=== PATIENT | male | born 1985 | race Caucasian/White ===

== ENCOUNTER 2020-12-17 20:54 | Inpatient (IN) | payer BC, SELFPAY ==
--- NOTE | ~2020-12-17 | US_ITS ---
US abdomen limited INDICATION: Cirrhosis PROCEDURE: Realtime right upper abdominal ultrasound. COMPARISON: No prior studies for comparison. FINDINGS: The pancreas is normal without focal mass or pancreatic ductal dilation. Echotexture is in creased, consistent with fatty infiltration. There is normal directional flow in the portal vein. The gallbladder is normal without stones, gallbladder wall thickening or pericholecystic fluid. Comm on bile duct measures 5 mm. No sonographic Quijano's sign. IMPRESSION: 1: Hepatic steatosis. Reviewed, dictated and finalized at location A. IMPRESSION: 1: Hepatic steatosis.
--- NOTE | ~2020-12-17 | XR_ITS ---
EXAMINATION: XR chest 1V portable DATE: 12/18/2020 03:00 INDICATION: Cough TECHNIQUE: frontal view of the chest was obtained. COMPARISON: None FINDINGS: Mild opacities in the left midlung zone. No pleural effusion or pneumothorax. The cardiomediastinal s ilhouette is within normal limits for AP technique. IMPRESSION: 1. Mild opacities in the left midlung zone which could represent pneumonia, atelectasis or asymmetric mild pulmonary edema. Reviewed, dictated and finalized at location A. IMPRESSION: 1. Mild opacities in the left midlung zone which could represent pneumonia, ate lectasis or asymmetric mild pulmonary edema.
--- NOTE | ~2020-12-17 | CT_ITS ---
EXAMINATION: CT abdomen pelvis w con INDICATION: Scrotal pain and swelling TECHNIQUE: Computed tomographic images of the abdomen and pelvis were obtained after the administrati on of 100 cc of Omnipaque 350 intravenous contrast. The dose-length product (DLP) was 3018.22 mGy-cm. Automated exposure control and iterative reconstruction technique were employed. COMPARISON: None available FINDINGS: Smooth interlobular septal thickening in groundglass opacities are present in the visualize d lung bases. The heart size is normal. The liver surface is nodular. The spleen, pancreas, gallbladd er, and adrenal glands are normal. The kidneys are unremarkable. There is diffuse anasarca. No pathol ogically enlarged abdominal lymph nodes are identified. There are enlarged bilateral inguinal and pel sandra lymph nodes. There is no free intraperitoneal gas or evidence of bowel obstruction. The appendix is normal. There is severe scrotal soft tissue swelling. There is a small fat-containing umbilical he rnia. Mild lumbar spondylosis is noted. IMPRESSION: 1. Severe scrotal wall thickening, edema versus cellulitis. 2. Inguinal and pelvic lymphadenopathy, likely reactive. 3. Findings in the lung bases consistent with pulmonary edema. 4. Cirrhosis. Reviewed, dictated and finalized at location B.
--- NOTE | ~2020-12-17 | US_ITS ---
EXAMINATION: US scrotum doppler EXAM DATE: 12/17/2020 22:38 INDICATION: Testicular pain. Bilateral swelling for 2 days. TECHNIQUE: Multiple grayscale and Doppler images of the testicles and scrotum were obtained bilateral ly. There is no prior study for comparison. FINDINGS: There is diffuse scrotal swelling, edema of the scrotal skin. Right testicle measures 5.0 x 2.8 x 2.9 cm and is morphologically normal. Low resistance Doppler anahy w confirmed. The epididymis is unremarkable. There is no hydrocele or varicocele. Left testicle measures 5.0 x 3.3 x 2.8 cm and is morphologically normal. Low resistance Doppler flow confirmed. The epididymis is unremarkable. Small hydrocele. IMPRESSION: 1. Severe scrotal wall edema. Cellulitis? 2. Normal testicles. Reviewed, dictated and finalized at location A.
[2020-12-17 20:59] VITALS: BP 209/124; PULSE 112; RESP 18; TEMP 36; O2SAT 100
[2020-12-17 21:20] LABS: Basophils Absolute Auto 0.1 K/mm3 (0.0-0.1); Basophils Percent Auto 0.5 % (0.2-1.2); Eosinophils Absolute Auto 0.3 K/mm3 (0-0.3); Hematocrit 45.4 % (42.0-52.0); Hemoglobin 13.7 g/dL (14.0-18.0); Immature Granulocyte Absolute 0.03 K/mm3 (0.00-0.031); Immature Granulocyte Percent A 0.3 % (0-0.5); Lymphocytes Absolute Auto 2.07 K/mm3 (0.9-3.2); Lymphocytes Percent Auto 18.7 % (18.3-44.2); Mean Corpuscular HGB Conc 30.2 g/dl (32-36); Mean Corpuscular Hemoglobin 28.8 pg (26-34); Mean Corpuscular Volume 95.6 fl (80-100); Mean Platelet Volume 9.3 fl (7.4-10.4); Monocytes Absolute Auto 0.9 K/mm3 (0.1-0.6); Monocytes Percent Auto 8.2 % (2.6-8.5); Neutrophils Absolute Auto 7.7 K/mm3 (1.3-6.7); Neutrophils Percent Auto 69.3 % (45.5-73.1); Platelet Count Result 380 k/mm3 (150-375); Red Blood Count 4.75 M/mm3 (4.6-6.20); Red Cell Distribution Width 14.2 % (11.5-14.5); White Blood Count 11.1 K/mm3 (4.5-10.0)
[2020-12-17 21:24] LABS: Add Urine Microscopic? YES; Appearance Urine Clear (Clear); Bilirubin Urine Negative (Negative); Blood Urine 2+ (Negative); Color Urine Yellow (Yellow); Glucose Urine UA Negative (Negative); Ketones Urine Negative (Negative); Leukocyte Esterase Ur Negative LEU/UL (Negative); Mucus Urine Rare /lpf; Nitrate Urine Negative (Negative); Protein Urine 3+ mg/dL (Negative); RBC Urine 21-50 /hpf (0-2); Specific Grav Ur 1.009 (1.001-1.035); Squamous Epithelial Cell Urine Rare /hpf (Few); Urobilinogen Urine Negative mg/dL (<2.0); WBC Urine 0-3 /hpf
[2020-12-17 21:29] LABS: Anion Gap 9 mmol/L (8-16); Blood Urea Nitrogen 9 mg/dL (9-20); Calcium 8.4 mg/dL (8.4-10.2); Carbon Dioxide 29 mmol/L (22-30); Chloride 95 mmol/L (98-107); Estimated Glomerular Filt Rate > 60; Glucose 112 mg/dL (65-110); Potassium 3.9 mmol/L (3.4-5.0); Sodium 133 mmol/L (137-145)
[2020-12-18] VITALS (19 sets, daily range): BP systolic 152–218; BP diastolic 85–151; PULSE 83–108; RESP 14–28; TEMP 36.1–36.4; O2SAT 94–100; BMI 58.1
--- NOTE | 2020-12-18 00:52 | ED.GENADULT ---
HPI - General Adult General Chief complaint: Urogenital-Male Stated complaint: swollen scrotum Time Seen by Provider: 12/17/20 21:44 Source: RN notes reviewed History of Present Illness HPI narrative: Patient presents to emergency department from home for swollen scrotum. Patient states symptoms began 2 days ago. States the scrotum has become very swollen states that the skin is tender to touch but that is asked testicles do not hurt. He denies any known trauma or injury he denies any fevers or chills abdominal pain dysuria or any other symptoms. Denies having diabetes mellitus patient is on Skyrizi for psoriasis Related Data Home Medications Medication Instructions Recorded Confirmed clozapine mg PO 12/17/20 sertraline [Zoloft] 200 mg PO DAILY 12/17/20 bupropion HCl mg PO 12/18/20 hydrocortisone TOPICAL 12/18/20 risankizumab-rzaa [Skyrizi] mg SUBCUT 12/18/20 triamcinolone acetonide TOPICAL 12/18/20 Allergies Allergy/AdvReac Type Severity Reaction Status Date / Time Sulfa (Sulfonamide Allergy Hives Verified 12/17/20 21:34 Antibiotics) sulfamethoxazole AdvReac Unknown Verified 12/18/20 01:17 [From Bactrim] trimethoprim [From Bactrim] AdvReac Unknown Verified 12/18/20 01:17 Review of Systems Review of Systems: Narrative: Gen.: Denies fevers or chills ENT: Denies congestion Respiratory: Denies shortness of breath or cough CV: Denies chest pain or palpitations GI: Denies abdominal pain nausea, emesis or diarrhea see HPI Musculoskeletal: Denies back pain or muscle pain Neuro: Denies numbness, tingling, weakness or focal weakness Skin: Denies rash Except as documented, all other systems reviewed and negative [facility] Past Medical History Medical History (Updated 12/18/20 @ 06:44 by Brady Restrepo DO) Psoriasis Scrotal edema Social History Social History (Updated 12/18/20 @ 01:51 by Brady Restrepo DO) Smoking status: Never smoker Exam Narrative: Exam Narrative: APPEARANCE: No acute distress, nontoxic, resting in bed EYES: EOMI HEENT: Normocephalic, atraumatic, OMM RESPIRATORY: No respiratory distress Clear to auscultation bilaterally with no rhonchi wheezing or rales. CARDIOVASCULAR: Regular rate and rhythm without murmurs rubs or gallops. ABDOMINAL: Obese with large pannus no erythema noted soft, nontender, nondistended, no rebound or guarding : No skin lesions no phimosis or paraphimosis, diffuse scrotal swelling with mild erythema no crepitance bilateral testicles nontender the right inguinal crease does have erythema no erythema extends into the perineum MUSCULOSKELETAl: Moves all extremities. No clubbing, cyanosis or edema. NEURO: Awake and alert. Following commands, speech normal, no focal deficits SKIN:: Warm, dry. No rashes lesions or abrasions PSYCHIATRIC: Normal affect/mood, Course Course Emergency Course: Called and discussed with Dr. Hodge for urology presentation work-up discussed exam and CT results. At this time meds transfer to tertiary care center as if the patient were to develop Marci's unable to care at [facility]. Recommends patient be started on vancomycin and Zosyn Transfer request [place] at this time D[facility]ed with [facility] and [facility] at [facility] unable to take transfers at this time Called discussed with [facility] Dr. Campbell for urology. At this time feels that this is most likely cellulitis and not a Marci's gangrene as there is no erythema or fluid collections and there is no crepitus on exam. Was the patient may remain our facility and recommends the patient be seen by our urologist prior to any further transfer Called Dr. Naveen yost with urology at [facility]. At this time will come to the ER to evaluate the patient [id number] Dr. Mehta came to the emergency department to evaluate the patient does not believe there is any evidence of Fo
[2020-12-18] MEDS: SODIUM CHLORIDE 0.9% IV 1,000 ML 999 ML IV CONT (01:01)
[2020-12-18 01:55] LABS: Lactic Acid Reflex 1.9 mmol/L (0.7-2.1)
[2020-12-18] MEDS: LORazepam INJ (*CRX) 2 MG/ML VIAL 0.5 MG IV PUSH (02:15)
[2020-12-18 02:42] LABS: NT Pro B Type Natriuretic Pept 3630 pg/mL (5-100)
--- NOTE | 2020-12-18 02:43 | ECG_ITS ---
Measurements Intervals [place] Rate: 106 P: 45 WI: 139 QRS: 40 QRSD: 102 T: 37 QT: 368 QTc: 490 Interpretive Statements SINUS TACHYCARDIA POSSIBLE LEFT ATRIAL ENLARGEMENT INCOMPLETE RIGHT BUNDLE BRANCH BLOCK BORDERLINE ECG Electronically Signed On 12-18-2020 6:26:50 CDT by Jeffrey Orozco D.O.
[2020-12-18] MEDS: hydrALAZINE HCL 20 MG/ML VIAL 10 MG IV PUSH (03:08)
[2020-12-18 03:22] LABS: Troponin I 0.012 ng/mL (0.000-0.034)
--- NOTE | 2020-12-18 06:04 | WPDURCON ---
Assessment and Plan Assessment and plan (1) Scrotal edema: Code(s): N50.89 - Other specified disorders of the male genital organs Status: Acute Assessment and Plan: 35-year-old morbidly obese gentleman with scrotal edema that appears to be secondary to his morbid obesity and possible CHF. - Recommend scrotal elevation - Diuresis per medical team. - there does not appear to be cellulitis or scrotal skin infection.patient was given empiric antibiotics in the emergency department, it does not appear that additional antibiotics necessary Urology Consult Note HPI Date Seen: 12/18/20 Primary Care Provider: PHYSICIAN NOT ON STAFF Consult Narrative Narrative: Allan Ng is a 35 year old male Who presents with scrotal swelling for 2 days. Patient denies fevers or chills nausea vomiting. He states he may have had an ingrown hair on his thigh, and has subsequently noted more scrotal swelling. The patient presents to the emergency department where a CT scan and scrotal ultrasound were performed. Urology was called for evaluation. Review of Systems Review of Systems: All systems reviewed & are unremarkable except as noted in HPI and below PMFSH Past Medical History Medical History (Updated 12/18/20 @ 06:08 by Ge Hodge MD) Psoriasis Scrotal edema Social History Social History (Updated 12/18/20 @ 01:51 by Brady Restrepo DO) Smoking status: Never smoker Meds Home Medications and Allergies Home Medications Medication Instructions Recorded Confirmed Type clozapine mg PO 12/17/20 History sertraline [Zoloft] 200 mg PO DAILY 12/17/20 History bupropion HCl mg PO 12/18/20 History hydrocortisone TOPICAL 12/18/20 History risankizumab-rzaa [Skyrizi] mg SUBCUT 12/18/20 History triamcinolone acetonide TOPICAL 12/18/20 History Allergies Allergy/AdvReac Type Severity Reaction Status Date / Time Sulfa (Sulfonamide Allergy Hives Verified 12/17/20 21:34 Antibiotics) sulfamethoxazole AdvReac Unknown Verified 12/18/20 01:17 [From Bactrim] trimethoprim [From Bactrim] AdvReac Unknown Verified 12/18/20 01:17 Vital Signs Vital Signs - 24 hr 12/17/20 20:59 12/18/20 02:08 12/18/20 03:01 Temperature 36.0 C L Pulse Rate 112 H 108 H 103 H Respiratory Rate 18 20 25 H Blood Pressure 209/124 H 218/127 H 217/140 H Pulse Oximetry 100 100 97 12/18/20 04:20 12/18/20 04:31 12/18/20 05:50 Temperature Pulse Rate 104 H 103 H Respiratory Rate 28 H 14 Blood Pressure 207/151 H 181/118 H 203/127 H Pulse Oximetry 97 97 Exam Narrative: Exam Narrative: The patient is morbidly obese. His breathing is unlabored. And abdomen is soft. the patient with normal phallus. He has bilateral descended testicles are nontender and palpable. there is significant scrotal edema. There is no erythema or crepitus of the scrotum. Results Labs CBC & Chem 7: 12/17/20 21:13 12/17/20 21:13 Labs: Short CBC 12/17/20 Range/Units 21:13 WBC 11.1 H (4.5-10.0) K/mm3 Hgb 13.7 L (14.0-18.0) g/dL Hct 45.4 (42.0-52.0) % Plt Count 380 H (150-375) k/mm3 BMP 12/17/20 21:13 Sodium 133 L Potassium 3.9 Chloride 95 L Carbon Dioxide 29 BUN 9 Creatinine 1.00 Glucose 112 H Calcium 8.4 Cardiac Enzymes 12/18/20 Range/Units 02:13 Troponin I 0.012 (0.000-0.034) ng/mL Urine 12/17/20 Range/Units 21:13 Urine Color Yellow (Yellow) Urine Appearance Clear (Clear) Urine pH 7.0 (5.0-9.0) Ur Specific [place] 1.009 (1.001-1.035) Urine Protein 3+ H (Negative) mg/dL Urine Glucose (UA) Negative (Negative) mg/dL Scrotum Ultrasound 12/17/20 22:48 IMPRESSION: 1. Severe scrotal wall edema. Cellulitis? 2. Normal testicles. CT abdomen pelvis with contrast. Moderate edema seen within the soft tissues anterior lower abdominal wall which is nonspecific. Correlate clinically to excl
[2020-12-18] MEDS: FUROSEMIDE INJ 40 MG/4 ML VIAL IV PUSH ×3 (06:16→16:42)
[2020-12-18] MEDS: LABETALOL HCL INJ 100 MG/20 ML VIAL 20 MG IV PUSH (06:47)
--- NOTE | 2020-12-18 08:50 | PC.NURSE ---
This patient, Allan Ng, was admitted to IMU Room 212-01. Patient/family oriented to hospital policies and general routines including ID bracelet, bed and alarms, visiting hours, pain management, procedures, bathroom and other care routines, personal items, smoking policy, room service/diet, and visiting hours. Information on how to activate the Rapid Response Team has been discussed. Patient/Family are encouraged to report perceived risks to care and to ask questions if they do not understand what they are told or what they should do.
--- NOTE | 2020-12-18 09:12 | PM.IMHP ---
H&P: HPI History of Present Illness Date/Time: 12/18/20 09:12 Chief Complaint: scrotal edema Narrative: This is a 35-year-old male with past medical history significant for morbid obesity, tobacco dependence, alcohol abuse. Patient states that he does not see a doctor on a regular basis it has been and was since he last saw a doctor. he presented to the emergency room due to a scrotal edema and problems with voiding urine. Patient has had PND and orthopnea as well have notice decreased stamina worsening shortness of breath leg swelling increased abdominal girth dry cough he also notices increased weight, no chest pain no syncope or near syncope no fevers no rigors no chills. upon presentation to the emergency room his systolic blood pressure was in the 200's with a diastolic in the 100's. Preliminary workup was significant for a scrotal ultrasound with significant wall edema, chest x-ray with infiltrates present in the left lower base, CT of abdomen and pelvis with lung bases significant for pulmonary edema, hepatic cirrhosis, and severe scrotal wall thickening,brain natriuretic peptide was above 3 thousand. Review of Systems Review of Systems: Narrative: Increased abdominal girth bilateral lower extremity edema and scrotal edema PND orthopnea worsening shortness of breath with activities Constitutional: Constitutional: Denies chills, Denies fever(s) and Reports weight gain Eyes: Eyes: Denies change in vision ENT: Denies dysphagia, Denies vertigo, Denies dizziness and Denies odynophagia Cardiovascular: Cardiovascular: Denies chest pain with activity, Denies irregular heart rhythm, Reports leg edema, Denies radiating jaw, neck or arm pain, Denies palpitations, Reports dyspnea, Reports dyspnea on exertion, Reports orthopnea and Reports paroxysmal nocturnal dyspnea Respiratory: Respiratory: Denies wheezing Gastrointestinal: Gastrointestinal: Denies abdominal pain, Reports heartburn, Denies diarrhea, Denies nausea and Denies vomiting Genitourinary: Genitourinary: Reports scrotal swelling Integumentary/Breasts: Skin/Breast: Reports swelling ( scrotal area) Neurologic: Denies focal weakness and Denies Sensory deficit (Neuro) Psychiatric: Psychiatric: Reports no additional psychiatric complaints Endocrine: Endocrine: Reports no additional endocrine complaints Hematologic/Lymphatic: Hematologic/Lymphatic: Reports no additional hematologic/lymphatic complaints Allergic/Immunologic: Allergic/Immunologic: Reports no additional allergic/immunologic complaints [facility] Past Medical History Medical History (Updated 12/18/20 @ 06:44 by Brady Restrepo DO) Psoriasis Scrotal edema Family History Family History (Updated 12/18/20 @ 08:46 by Batsheva Rolon) Father Hypertension Diabetes mellitus Peripheral vascular disease ESRD (end stage renal disease) Atrial fibrillation Mother Hyperlipemia Arthritis Lung cancer Social History Social History (Updated 12/18/20 @ 01:51 by Brady Restrepo DO) Smoking packs per day: 1 Smoking cigarettes per day: 20.0 Smoking status: Current every day smoker Tobacco type: cigarettes and smokeless tobacco Smokeless tobacco user: snuff Second hand tobacco smoke exposure: Yes Additional smoking assessment comments: SMOKED UP TO 1PPD, NOW A FEW CIGAREETTES DAILY AND SNUFF Alcohol intake: current Substance use: current Substance use type: marijuana Other substance usage details: DAILY BEER AND VODKA, MARIJUANA OCCASOINAL Gender identity (if verbalized by the patient): Male Spiritual care concerns: No Meds Home Medications and Allergies Home Medications Medication Instructions Recorded Confirmed Type clonazepam 0.5 mg PO DAILY 12/18/20 12/18/20 History hydrocortisone 1 applic TOPICAL PRN PRN 12/18/20 12/18/20 History loratadine [Claritin] 10 mg PO DAILY 12/18/20 12/18/20 History risankizumab-rzaa [Skyrizi] 150 mg SUBCUT [id number] 12/18/20 12/18/20 H
[2020-12-18 10:07] LABS: Troponin I 0.012 ng/mL (0.000-0.034)
[2020-12-18] MEDS: SERTRALINE HCL 50 MG TABLET 200 MG PO (11:12)
[2020-12-18] MEDS: clonazePAM (*CRX) 0.5 MG TABLET PO (11:12)
[2020-12-18] MEDS: TOLNAFTATE 1% POWDER 45 GM BTL 1 APPLIC TOPICAL ×2 (11:12→20:47)
[2020-12-18 12:48] LABS: Troponin I < 0.012 ng/mL (0.000-0.034)
[2020-12-18] MEDS: hydrALAZINE HCL 20 MG/ML VIAL (13:22)
[2020-12-18] MEDS: LORATADINE 10 MG TABLET PO (16:42)
[2020-12-19] VITALS (19 sets, daily range): BP systolic 150–200; BP diastolic 97–122; PULSE 95–112; RESP 18–22; TEMP 35.8–36.6; O2SAT 91–100
[2020-12-19 05:23] LABS: Basophils Percent Auto 0.4 % (0.2-1.2); Eosinophils Absolute Auto 0.4 K/mm3 (0-0.3); Eosinophils Percent Auto 4.5 % (0-4.4); Hematocrit 42.2 % (42.0-52.0); Hemoglobin 12.9 g/dL (14.0-18.0); Immature Granulocyte Absolute 0.04 K/mm3 (0.00-0.031); Immature Granulocyte Percent A 0.4 % (0-0.5); Lymphocytes Absolute Auto 1.81 K/mm3 (0.9-3.2); Lymphocytes Percent Auto 19.3 % (18.3-44.2); Mean Corpuscular HGB Conc 30.6 g/dl (32-36); Mean Corpuscular Hemoglobin 28.9 pg (26-34); Mean Corpuscular Volume 94.6 fl (80-100); Mean Platelet Volume 9.8 fl (7.4-10.4); Monocytes Absolute Auto 0.7 K/mm3 (0.1-0.6); Monocytes Percent Auto 7.6 % (2.6-8.5); Neutrophils Absolute Auto 6.4 K/mm3 (1.3-6.7); Neutrophils Percent Auto 67.8 % (45.5-73.1); Platelet Count Result 308 k/mm3 (150-375); Red Blood Count 4.46 M/mm3 (4.6-6.20); Red Cell Distribution Width 14.6 % (11.5-14.5); White Blood Count 9.4 K/mm3 (4.5-10.0)
--- NOTE | 2020-12-19 06:00 | ECHO_ITS ---
Patient Info Name: Allan Ng Age: 35 years : 1985 Gender: Male Ht: 73 in Wt: 441 lbs BSA: 3.32 m2 HR: 105 bpm BP: 179 / 122 mmHg Technical Quality: Poor Exam Date: 12/19/2020 8:25 AM Exam Location: [facility] Patient Status: Inpatient Admit Date: 12/18/2020 Staff Ordering Physician: Brady Restrepo DO Senior Actuarial Analyst: Davina Cervantes RDCS Attending Provider: Shannan Gallo DO Referring Physician: Lauro BAKER; Exam Type: CA echo dop color flow w con Study Info Complete two-dimensional, color flow and Doppler transthoracic echocardiogram is performed with contrast to opacify the left ventricle and to improve the deliniation of the left ventricle endocardial borders. Contrast/Agitated Saline Contrast/Ag. Saline: Definity Amount: 4.00 ml Summary 1. Technically suboptimal study due to poor sonographic images. 2. Definity contrast administered improved wall motion interpretation. 3. Left ventricular chamber dimension is mildly enlarged. 4. Left ventricular systolic function is normal, estimated at 50-55%. 5. The left ventricular diastolic function is grade IV diastolic dysfunction. 6. Tissue doppler E/e' is not measured. 7. Left atrial chamber dimension is mildly enlarged. 8. No pulmonary hypertension, estimated pulmonary arterial systolic pressure is 37 mmHg. Left Ventricle Technically suboptimal study due to poor sonographic images. Tissue doppler E/e' is not measured. Definity contrast administered improved wall motion interpretation. Left ventricular chamber dimension is mildly enlarged. Left ventricular systolic function is normal, estimated at 50-55%. The left ventricular diastolic function is grade IV diastolic dysfunction. Right Ventricle Right ventricular systolic function is normal based on normal TAPSE 1.7 cm. Right ventricular chamber dimension is not well visualized. Left Atria Left atrial chamber dimension is mildly enlarged. Right Atria Right atrial chamber dimension is not well visualized. Aortic Valve The aortic valve is trileaflet. There is no aortic valve stenosis. There is no aortic valve regurgitation. Pulmonic Valve The pulmonic valve is not well visualized. Mitral Valve The mitral valve has not well visualized. There is no mitral valve stenosis. There is no mitral valve regurgitation. Tricuspid Valve The tricuspid valve leaflets are not well visualized. There is no tricuspid valve regurgitation. No pulmonary hypertension, estimated pulmonary arterial systolic pressure is 37 mmHg. Pericardium/Pleural There is no pericardial effusion. Inferior Vena Cava Inferior vena cava is not well visualized. Aorta The aortic root size at the sinus of Valsalva is not well visualized. Left Ventricular Outflow Tract Name Value Normal LVOT 2D LVOT Diameter 2.48 cm LVOT Doppler LVOT Peak Gradient 4 mmHg LVOT Mean Gradient 2 mmHg LVOT VTI 15.80 cm LVOT VTI/AV VTI Ratio 0.[address]
[2020-12-19 06:20] LABS: Anion Gap 7 mmol/L (8-16); Blood Urea Nitrogen 7 mg/dL (9-20); Calcium 8.5 mg/dL (8.4-10.2); Carbon Dioxide 27 mmol/L (22-30); Chloride 99 mmol/L (98-107); Estimated CRCL calculation 162 ml/min; Estimated Glomerular Filt Rate > 60; Glucose 100 mg/dL (65-110); Potassium 3.9 mmol/L (3.4-5.0); Sodium 133 mmol/L (137-145)
[2020-12-19] MEDS: LORATADINE 10 MG TABLET PO (09:27)
[2020-12-19] MEDS: PERFLUTREN LIPID MICROSPHERES 1.5 ML VIAL DILUTED TO 10 ML TOTAL VOLUME (09:27)
[2020-12-19] MEDS: clonazePAM (*CRX) 0.5 MG TABLET PO (09:27)
[2020-12-19] MEDS: SERTRALINE HCL 50 MG TABLET 200 MG PO (09:28)
[2020-12-19] MEDS: lisinopriL 10 MG TABLET PO (09:28)
[2020-12-19] MEDS: FUROSEMIDE INJ 40 MG/4 ML VIAL IV PUSH ×2 (09:28→15:59)
[2020-12-19] MEDS: TOLNAFTATE 1% POWDER 45 GM BTL 1 APPLIC TOPICAL ×2 (09:29→21:21)
--- NOTE | 2020-12-19 13:27 | PM.IMPN ---
Progress Note: A&P Assessment and Plan (1) CHF (congestive heart failure): Code(s): I50.9 - Heart failure, unspecified Status: Acute Assessment and Plan: PATIENT WITH GOOD URINE OUTPUT IMPROVED admitted to telemetry unit currently diuresing awaiting echocardiogram [place] in for accurate intake and output likely secondary to long-standing untreated undiagnosed hypertension (2) Scrotal edema: Code(s): N50.89 - Other specified disorders of the male genital organs Status: Acute Assessment and Plan: CONTINUE TO MONITOR Likely secondary to congestive heart failure improved with diuresis (3) Hypertensive urgency: Code(s): I16.0 - Hypertensive urgency Status: Acute Assessment and Plan: on no medications at home hydralazine p.r.n. STILL HYPERTENSIVE INCREASE LISINOPRIL TO 40 P.O. DAILY (4) Cellulitis of scrotum: Code(s): N49.2 - Inflammatory disorders of scrotum Status: Acute Assessment and Plan: ruled out WILL DISCONTINUE ANTIBIOTICS NOT NEEDED (5) Psoriasis: Code(s): L40.9 - Psoriasis, unspecified Status: Acute Assessment and Plan: well controlled Subjective Date/time seen: 12/19/20 13:27 I FEEL MUCH BETTER TODAY Review of Systems Constitutional: Constitutional: Denies chills, Denies fever(s) and Reports weight gain Eyes: Eyes: Denies change in vision ENT: Denies dysphagia, Denies vertigo, Denies dizziness and Denies odynophagia Cardiovascular: Cardiovascular: Denies chest pain with activity, Denies irregular heart rhythm, Reports leg edema, Denies radiating jaw, neck or arm pain, Denies palpitations, Reports dyspnea, Reports dyspnea on exertion, Reports orthopnea and Reports paroxysmal nocturnal dyspnea Respiratory: Respiratory: Reports dyspnea, Reports dyspnea on exertion and Denies wheezing Gastrointestinal: Gastrointestinal: Denies abdominal pain, Denies dysphagia, Reports heartburn, Denies diarrhea, Denies nausea, Denies odynophagia and Denies vomiting Genitourinary: Genitourinary: Reports scrotal swelling Integumentary/Breasts: Skin/Breast: Reports swelling ( scrotal area) Neurologic: Denies vertigo, Denies dizziness, Denies focal weakness and Denies Sensory deficit (Neuro) Psychiatric: Psychiatric: Reports no additional psychiatric complaints Endocrine: Endocrine: Reports no additional endocrine complaints and Denies palpitations Hematologic/Lymphatic: Hematologic/Lymphatic: Reports no additional hematologic/lymphatic complaints Allergic/Immunologic: Allergic/Immunologic: Reports no additional allergic/immunologic complaints and Denies wheezing Exam Narrative: Exam Narrative: laying in bed Const: General: comfortable, no acute distress, well developed, alert and awake Nutritional Appearance: obese morbidly obese and edematous Orientation/consciousness: patient oriented x3 HENMT: Head: normal to inspection, normocephalic and atraumatic Ears: hearing grossly normal bilaterally General nose exam: Normal external nose present Face and sinus: normal facial exam Eyes: General: appearance normal, both eyes and all related structures Sclera: sclerae normal Pupils: Equal, round and reactive pupils present EOM: EOMs intact bilaterally Neck: Neck: full ROM, no lymphadenopathy and no JVD Thyroid: thyroid normal Lymphatic: no lymphadenopathy noted Resp: Effort & Inspection: normal respiratory effort and able to speak in complete sentences Auscultation: clear to auscultation bilaterally, no crackles, no rales and no rhonchi Cardio: Jugular venous distension: no JVD Rate: regular rate Rhythm: regular rhythm Heart sounds: S1 normal heart sound present and S2 normal heart sound present GI: Inspection: Pannus present, obesity and striae : Male General Exam: Yes edema Skin: General skin exam: excoriation ( bilateral lower extremities) Rashes: no rashes Wounds: no wounds Neuro: Ge
[2020-12-19 15:13] LABS: Vancomycin Trough 12.7 ug/mL (10.0-20.0)
[2020-12-19] MEDS: hydrALAZINE HCL 20 MG/ML VIAL 10 MG IV PUSH (15:24)
[2020-12-19] MEDS: TRIAMCINOLONE ACET 0.1% OINT 15 GM TUBE 1 APPLIC TOPICAL (16:01)
[2020-12-20] VITALS (18 sets, daily range): BP systolic 152–187; BP diastolic 104–121; PULSE 89–105; RESP 18; TEMP 36.3–36.7; O2SAT 93–100
[2020-12-20] MEDS: hydrALAZINE HCL 20 MG/ML VIAL 10 MG IV PUSH (03:53)
[2020-12-20] MEDS: clonazePAM (*CRX) 0.5 MG TABLET PO (07:54)
[2020-12-20] MEDS: FUROSEMIDE INJ 40 MG/4 ML VIAL IV PUSH ×2 (07:54→16:49)
[2020-12-20] MEDS: lisinopriL 20 MG TABLET 40 MG PO (07:55)
[2020-12-20] MEDS: LORATADINE 10 MG TABLET PO (07:55)
[2020-12-20] MEDS: SERTRALINE HCL 50 MG TABLET 200 MG PO (07:55)
[2020-12-20] MEDS: TOLNAFTATE 1% POWDER 45 GM BTL 1 APPLIC TOPICAL ×2 (07:56→21:10)
--- NOTE | 2020-12-20 09:46 | PM.CNCAR ---
Assessment and Plan Assessment and plan (1) CHF (congestive heart failure): Code(s): I50.9 - Heart failure, unspecified Status: Acute Assessment and Plan: 35-year-old male with history of untreated hypertension, morbid obesity, anxiety /depression, psoriasis and psoriatic arthritis,tobacco and alcohol abuse. Patient presented to hospital with dyspnea on exertion and scrotal swelling. He was found to be severely hypertensive with blood pressure 209/124 at presentation. EKG showed sinus tachycardia, no acute ST segment abnormality. Serial troponins are negative. NT proBNP is elevated. Chest x-ray shows pulmonary vascular congestion. Echo showed EF 50-55%, diastolic dysfunction. Clinical presentation consistent with uncontrolled hypertension with hypertensive heart disease and CHF with preserved ejection fraction. - Continue diuresis with IV furosemide, switch to p.o. furosemide when volume status improves. Patient will need maintenance diuresis at discharge. - Optimal blood pressure control. Continue lisinopril; discontinue hydralazine (may use IV hydralazine on p.r.n. basis only). Start carvedilol 6.25 mg p.o. b.i.d. ( dose to be up titrated as needed), amlodipine 10 mg p.o. daily, spironolactone 25 mg p.o. daily. Patient's antihypertensives will be modified /optimized as an outpatient. Importance of blood pressure control was discussed with the patient. Medication compliance was emphasized. Low-salt diet counseling was done. - Patient is morbidly obese, and possibly has obstructive sleep apnea. Outpatient sleep study. Weight reduction counseling was done. (2) Hypertensive urgency: Code(s): I16.0 - Hypertensive urgency Status: Acute Assessment and Plan: Blood pressure is improving, see above for details (3) Scrotal edema: Code(s): N50.89 - Other specified disorders of the male genital organs Status: Acute Assessment and Plan: keep scrotum and legs elevated. Diuresis with furosemide. Local hygiene. Patient has been evaluated by Urology. (4) Tobacco abuse: Code(s): Z72.0 - Tobacco use Status: Acute Assessment and Plan: Smoking cessation counseling was done (5) Morbid obesity: Code(s): E66.01 - Morbid (severe) obesity due to excess calories Status: Acute Assessment and Plan: weight reduction. Outpatient sleep study (6) Cirrhosis: Code(s): K74.60 - Unspecified cirrhosis of liver Status: Acute Assessment and Plan: CT scan of the abdomen and pelvis reportedly showed nodular liver consistent with cirrhosis. Patient gives history of excessive alcohol use. He is morbidly obese, and gives history of elevated liver enzymes in the past. It is uncertain if patient has any history of fatty liver disease. Need to evaluate for any history of hepatitis. Recommend gastroenterology evaluation. History of Present Illness History of Present Illness Consult date/time: 12/20/20 09:46 DATE OF CONSULT: 12/20/2020 REASON FOR CONSULT: new onset CHF REQUESTING PHYSICIAN:Seven Akbar MD CHIEF COMPLAINT: Scrotal swelling HPI: 35-year-old male with history of untreated hypertension, morbid obesity, anxiety /depression, psoriasis and psoriatic arthritis,tobacco and alcohol abuse. Patient presented to [facility] on 12/18/2020 with complaints of scrotal swelling associated with shortness of breath that started about 2-3 days prior to arrival to the hospital. Patient states that he has been experiencing dyspnea on climbing stairs for some time now, unable to give the exact date. At flat surface, he does not have any major difficulty. He denies chest pain, palpitation, dizziness or syncope. Patient states that he was diagnosed with hypertension several years ago, and was on lisinopril/hydrochlorothiazide for some time. He start taking medications on his own. Patient is morbidly obese, and does not recall any diagno
[2020-12-20] MEDS: amLODIPine BESYLATE 5 MG TABLET 10 MG PO (12:36)
[2020-12-20] MEDS: carvediloL 6.25 MG TABLET PO ×2 (12:36→21:09)
[2020-12-20] MEDS: SPIRONOLACTONE 25 MG TABLET PO ×2 (12:36→16:49)
--- NOTE | 2020-12-20 13:09 | PM.IMPN ---
Progress Note: A&P Assessment and Plan (1) CHF (congestive heart failure): Code(s): I50.9 - Heart failure, unspecified Status: Acute Assessment and Plan: PATIENT WITH GOOD URINE OUTPUT IMPROVED APPRECIATE CARDIOLOGY NOTE CARDIOLOGY RECS NOTED ECHOCARDIOGRAM REVIEWED admitted to telemetry unit currently diuresing awaiting echocardiogram [place] in for accurate intake and output likely secondary to long-standing untreated undiagnosed hypertension (2) Scrotal edema: Code(s): N50.89 - Other specified disorders of the male genital organs Status: Acute Assessment and Plan: CONTINUE TO MONITOR Likely secondary to congestive heart failure improved with diuresis (3) Hypertensive urgency: Code(s): I16.0 - Hypertensive urgency Status: Acute Assessment and Plan: on no medications at home hydralazine p.r.n. STILL HYPERTENSIVE INCREASE LISINOPRIL TO 40 P.O. DAILY AMLODIPINE HAS BEEN ADDED CARVEDILOL HAS BEEN ADDED SPIRONOLACTONE HAS BEEN ADDED (4) Cellulitis of scrotum: Code(s): N49.2 - Inflammatory disorders of scrotum Status: Acute Assessment and Plan: ruled out WILL DISCONTINUE ANTIBIOTICS NOT NEEDED (5) Psoriasis: Code(s): L40.9 - Psoriasis, unspecified Status: Acute Assessment and Plan: well controlled Subjective Date/time seen: 12/20/20 13:09 I FEEL MUCH BETTER Review of Systems Review of Systems: Narrative: STATES THAT HIS ABDOMINAL GIRTH HAS GONE DOWN NOTICEABLY Constitutional: Constitutional: Denies chills, Denies fever(s) and Reports weight gain Eyes: Eyes: Denies change in vision ENT: Denies dysphagia, Denies vertigo, Denies dizziness and Denies odynophagia Cardiovascular: Cardiovascular: Denies chest pain with activity, Denies irregular heart rhythm, Reports leg edema, Denies radiating jaw, neck or arm pain, Denies palpitations, Reports dyspnea, Reports dyspnea on exertion, Reports orthopnea and Reports paroxysmal nocturnal dyspnea Respiratory: Respiratory: Reports dyspnea, Reports dyspnea on exertion and Denies wheezing Gastrointestinal: Gastrointestinal: Denies abdominal pain, Denies dysphagia, Reports heartburn, Denies diarrhea, Denies nausea, Denies odynophagia and Denies vomiting Genitourinary: Genitourinary: Reports scrotal swelling Integumentary/Breasts: Skin/Breast: Reports swelling ( scrotal area) Neurologic: Denies vertigo, Denies dizziness, Denies focal weakness and Denies Sensory deficit (Neuro) Psychiatric: Psychiatric: Reports no additional psychiatric complaints Endocrine: Endocrine: Reports no additional endocrine complaints and Denies palpitations Hematologic/Lymphatic: Hematologic/Lymphatic: Reports no additional hematologic/lymphatic complaints Allergic/Immunologic: Allergic/Immunologic: Reports no additional allergic/immunologic complaints and Denies wheezing Exam Narrative: Exam Narrative: laying in bed Const: General: comfortable, no acute distress, well developed, alert and awake Nutritional Appearance: obese morbidly obese and edematous Orientation/consciousness: patient oriented x3 HENMT: Head: normal to inspection, normocephalic and atraumatic Ears: hearing grossly normal bilaterally General nose exam: Normal external nose present Face and sinus: normal facial exam Eyes: General: appearance normal, both eyes and all related structures Sclera: sclerae normal Pupils: Equal, round and reactive pupils present EOM: EOMs intact bilaterally Neck: Neck: full ROM, no lymphadenopathy and no JVD Thyroid: thyroid normal Lymphatic: no lymphadenopathy noted Resp: Effort & Inspection: normal respiratory effort and able to speak in complete sentences Auscultation: clear to auscultation bilaterally, no crackles, no rales and no rhonchi Cardio: Jugular venous distension: no JVD Rate: regular rate Rhythm: regular rhythm Heart sounds: S1 normal heart soun
[2020-12-20] MEDS: MELATONIN 5 MG TABLET PO (22:29)
[2020-12-21] VITALS (13 sets, daily range): BP systolic 126–169; BP diastolic 71–114; PULSE 88–104; RESP 17–20; TEMP 35.8–36.7; O2SAT 96–99
[2020-12-21] MEDS: hydrALAZINE HCL 20 MG/ML VIAL 10 MG IV PUSH (05:38)
[2020-12-21 06:01] LABS: Estimated CRCL calculation 174 ml/min; Estimated Glomerular Filt Rate > 60
--- NOTE | 2020-12-21 08:14 | PM.IMPN ---
Progress Note: A&P Assessment and Plan (1) CHF (congestive heart failure): Code(s): I50.9 - Heart failure, unspecified Status: Acute Assessment and Plan: Cardiology recommendations appreciated. Continue diuresis with Lasix. Strict intake of record and daily weight. Continue to monitor renal parameters and electrolytes. Echocardiogram reviewed which showed ejection fraction of 50-55%. Estimated pulmonary artery pressure was 37. He does have diastolic dysfunction on echocardiogram likely secondary to long-standing untreated undiagnosed hypertension. continue Coreg and lisinopril. (2) Scrotal edema: Code(s): N50.89 - Other specified disorders of the male genital organs Status: Acute Assessment and Plan: Continue to monitor Likely secondary to congestive heart failure improved with diuresis with decreasing swelling. (3) Hypertensive urgency: Code(s): I16.0 - Hypertensive urgency Status: Acute Assessment and Plan: on no medications at home hydralazine p.r.n. Will titrate will titrate Coreg to 12.5 mg twice a day. Continue amlodipine and lisinopril at current dose. Continue spironolactone continue diuresis with Lasix. (4) Cellulitis of scrotum: Code(s): N49.2 - Inflammatory disorders of scrotum Status: Acute Assessment and Plan: I will stop vancomycin and is he does not seem to have cellulitis of the scrotum based on clinical examination. (5) Psoriasis: Code(s): L40.9 - Psoriasis, unspecified Status: Acute Assessment and Plan: well controlled continue his home regimen Subjective Date/time seen: 12/21/20 08:14 He is feeling better. He thinks that his symptom of shortness of breath has been improving. Swelling of the lower extremity and scrotum is improving as well. His blood pressure is still uncontrolled and today his carvedilol dose has been increased to 12.5 mg twice a day. He had a net negative fluid balance of 2 L in the last 24 hours with diuresis. Review of Systems Review of Systems: All systems reviewed & are unremarkable except as noted in HPI and below Exam Narrative: Exam Narrative: General awake and alert not in distress CVS S1-S2 no murmur respiratory crackles at the bilateral lung bases extremity edema present abdomen soft nontender [employer] O[employer]ATOR alert oriented x3 grossly nonfocal neurological exam Neck: Neck: no JVD Objective Data Vital Signs Vital Signs: Vital Signs - 24 hr 07/25/21 10:00 12/20/20 12:00 12/20/20 12:36 Temperature 36.6 C Pulse Rate 105 H 105 H 100 Respiratory Rate 18 Blood Pressure 187/121 H Pulse Oximetry 93 12/20/20 14:00 12/20/20 16:00 12/20/20 18:00 Temperature 36.5 C Pulse Rate 98 96 99 Respiratory Rate 18 Blood Pressure 171/114 H Pulse Oximetry 93 12/20/20 19:45 12/20/20 20:00 12/20/20 21:09 Temperature 36.7 C Pulse Rate 100 92 92 Respiratory Rate 18 Blood Pressure 172/111 H Pulse Oximetry 99 12/20/20 22:00 12/20/20 23:56 12/21/20 00:00 Temperature 36.6 C Pulse Rate 93 89 88 Respiratory Rate 18 Blood Pressure 152/119 H Pulse Oximetry 96 12/21/20 02:00 12/21/20 04:00 12/21/20 06:00 Temperature 35.8 C L Pulse Rate 93 96 89 Respiratory Rate 20 Blood Pressure 169/114 H Pulse Oximetry 97 Intake/Output Intake/Output: Intake & Output 12/18/20 12/19/20 12/20/20 12/21/20 23:59 23:59 23:59 23:59 Intake Total 4330 3820 2380 890 Output Total 6709 53322 5880 950 Balance -2395 -6230 -3445 -60 Meds/Results Medications: Active Medications Generic Name Dose Route Start Last Admin Trade Name Remiq PRN Reason Stop Dose Admin Amlodipine Besylate 10 mg 12/20/20 09:00 12/20/20 12:36 Amlodipine Besylate 5 Mg Tablet PO 10 mg QAM [facility] Administration Carvedilol 6.25 mg 12/20/20 09:00 12/20/20 21:09 Carvedilol 6.25 Mg
[2020-12-21] MEDS: LORATADINE 10 MG TABLET PO (08:42)
[2020-12-21] MEDS: SERTRALINE HCL 50 MG TABLET 200 MG PO (08:42)
[2020-12-21] MEDS: SPIRONOLACTONE 25 MG TABLET PO ×2 (08:42→16:32)
[2020-12-21] MEDS: lisinopriL 20 MG TABLET 40 MG PO (08:42)
[2020-12-21] MEDS: TRIAMCINOLONE ACET 0.1% OINT 15 GM TUBE 1 APPLIC TOPICAL (08:42)
[2020-12-21] MEDS: amLODIPine BESYLATE 5 MG TABLET 10 MG PO (08:42)
[2020-12-21] MEDS: carvediloL 6.25 MG TABLET PO (08:42)
[2020-12-21] MEDS: TOLNAFTATE 1% POWDER 45 GM BTL 1 APPLIC TOPICAL ×2 (08:43→20:26)
[2020-12-21] MEDS: FUROSEMIDE INJ 40 MG/4 ML VIAL IV PUSH ×2 (08:43→16:32)
[2020-12-21] MEDS: clonazePAM (*CRX) 0.5 MG TABLET PO (08:44)
--- NOTE | 2020-12-21 09:39 | PM.PNCARD ---
Progress Note: A&P Assessment and Plan (1) CHF (congestive heart failure): Code(s): I50.9 - Heart failure, unspecified Status: Acute Assessment and Plan: 35-year-old male with history of untreated hypertension, morbid obesity, anxiety /depression, psoriasis and psoriatic arthritis,tobacco and alcohol abuse. Patient presented to hospital with dyspnea on exertion and scrotal swelling. He was found to be severely hypertensive with blood pressure 209/124 at presentation. EKG showed sinus tachycardia, no acute ST segment abnormality. Serial troponins are negative. NT proBNP is elevated. Chest x-ray shows pulmonary vascular congestion. Echo showed EF 50-55%, diastolic dysfunction. Clinical presentation consistent with uncontrolled hypertension with hypertensive heart disease and CHF with preserved ejection fraction. - Continue diuresis with furosemide. Will shift to oral today. - daily BMP - Remains hypertensive. Optimize blood pressure control. Continue Coreg 12.5mg BID, Continue lisinopril 40mg daily. Amlodipine 10 mg p.o. daily, spironolactone 25 mg p.o. daily. - outpatient sleep study (2) Hypertensive urgency: Code(s): I16.0 - Hypertensive urgency Status: Acute Assessment and Plan: Blood pressure is improving, see above for details (3) Scrotal edema: Code(s): N50.89 - Other specified disorders of the male genital organs Status: Acute Assessment and Plan: keep scrotum and legs elevated. Diuresis with furosemide. Local hygiene. Patient has been evaluated by Urology. (4) Tobacco abuse: Code(s): Z72.0 - Tobacco use Status: Acute Assessment and Plan: Smoking cessation counseling was done (5) Morbid obesity: Code(s): E66.01 - Morbid (severe) obesity due to excess calories Status: Acute Assessment and Plan: weight reduction. Outpatient sleep study (6) Cirrhosis: Code(s): K74.60 - Unspecified cirrhosis of liver Status: Acute Assessment and Plan: I talked to the patient at length regarding weight reduction, heart healthy diet, fluid restriction, tobacco and alcohol cessation, medication adherence. I emphasized the importance of controlling his blood pressure not only for heart health but for avoidance of additional end-organ damage. Subjective Date/time seen: 12/21/20 09:39 Cardiology follow up for heart failire. Date of service 12/21/2020: Patient says he feels normal today. Says that he has noticed a significant decrease in his scrotal edema and abdominal distension. He is breathing comfortably on room air. Denies any shortness of breath, chest pain. Review of Systems Review of Systems: All systems reviewed & are unremarkable except as noted in HPI and below Constitutional: Constitutional: Denies difficulty sleeping, Reports fatigue and Reports lethargy Eyes: Eyes: Denies change in vision ENT: Reports Normal hearing present Cardiovascular: Cardiovascular: Denies chest pain, Reports pedal edema, Reports leg edema and Denies palpitations Respiratory: Respiratory: Denies cough, Denies dyspnea and Reports dyspnea on exertion Gastrointestinal: Gastrointestinal: Reports bloating, Denies constipation and Denies diarrhea Genitourinary: Genitourinary: Denies dysuria Musculoskeletal: Musculoskeletal: Denies back pain, Denies arthralgias and Reports neck pain Integumentary/Breasts: Skin/Breast: Reports erythema Neurologic: Denies headache(s) Psychiatric: Psychiatric: Denies anxiety and Denies depression Endocrine: Endocrine: Denies excessive sweating, Reports fatigue and Denies palpitations Hematologic/Lymphatic: Hematologic/Lymphatic: Denies easy bleeding and Denies easy bruising Exam Narrative: Exam Narrative: Morbidly obese male. Alert and oriented. Const: General: comfortable and no acute distress HENMT: Head: normal to inspection Mouth: Yes moist
[2020-12-21 10:21] LABS: Anion Gap 8 mmol/L (8-16); Blood Urea Nitrogen 11 mg/dL (9-20); Calcium 8.9 mg/dL (8.4-10.2); Carbon Dioxide 27 mmol/L (22-30); Chloride 100 mmol/L (98-107); Estimated CRCL calculation 173 ml/min; Estimated Glomerular Filt Rate > 60; Glucose 110 mg/dL (65-110); Sodium 135 mmol/L (137-145)
[2020-12-21 11:42] LABS: Hepatitis B Surface Antigen Negative (Negative)
[2020-12-21 12:01] LABS: Hepatitis B Surface Anti Res Negative; Hepatitis C Virus Antibody Negative (Negative)
--- NOTE | 2020-12-21 15:43 | PC.NURSE ---
This patient, Allan Ng, was transferred to [ [id number]] on 12/21/20 at 1543. Personal belongings sent with patient. Report given to [JONATHON Flores @ [phone] ]. Appropriate documentation sent with patient.
--- NOTE | 2020-12-21 15:55 | PC.NURSE ---
patient transferred to room 314 from IMU
[2020-12-21] MEDS: carvediloL 12.5 MG TABLET PO (20:23)
[2020-12-21] MEDS: HEPARIN SODIUM 5,000 UNITS/ML VIAL 5000 UNITS SUB-Q (20:24)
[2020-12-21] MEDS: MELATONIN 5 MG TABLET PO (20:25)
[2020-12-22] VITALS (11 sets, daily range): BP systolic 119–152; BP diastolic 79–99; PULSE 80–120; RESP 20; TEMP 35.5–36.1; O2SAT 98–100
[2020-12-22 06:55] LABS: Anion Gap 9 mmol/L (8-16); Blood Urea Nitrogen 14 mg/dL (9-20); Calcium 8.8 mg/dL (8.4-10.2); Carbon Dioxide 25 mmol/L (22-30); Chloride 100 mmol/L (98-107); Estimated CRCL calculation 172 ml/min; Estimated Glomerular Filt Rate > 60; Glucose 100 mg/dL (65-110); Potassium 4.6 mmol/L (3.4-5.0); Sodium 134 mmol/L (137-145)
[2020-12-22] MEDS: carvediloL 12.5 MG TABLET PO ×2 (09:10→20:49)
[2020-12-22] MEDS: HEPARIN SODIUM 5,000 UNITS/ML VIAL 5000 UNITS SUB-Q ×2 (09:10→20:49)
[2020-12-22] MEDS: FUROSEMIDE INJ 40 MG/4 ML VIAL IV PUSH (09:10)
[2020-12-22] MEDS: amLODIPine BESYLATE 5 MG TABLET 10 MG PO (09:12)
[2020-12-22] MEDS: lisinopriL 20 MG TABLET 40 MG PO (09:12)
[2020-12-22] MEDS: clonazePAM (*CRX) 0.5 MG TABLET PO (09:12)
[2020-12-22] MEDS: SPIRONOLACTONE 25 MG TABLET PO ×2 (09:12→17:33)
[2020-12-22] MEDS: SERTRALINE HCL 50 MG TABLET 200 MG PO (09:13)
[2020-12-22] MEDS: LORATADINE 10 MG TABLET PO (09:13)
[2020-12-22] MEDS: TOLNAFTATE 1% POWDER 45 GM BTL 1 APPLIC TOPICAL ×2 (09:13→20:50)
--- NOTE | 2020-12-22 14:18 | PM.IMPN ---
Progress Note: A&P Assessment and Plan (1) CHF (congestive heart failure): Code(s): I50.9 - Heart failure, unspecified Status: Acute Assessment and Plan: Cardiology recommendations appreciated. Continue diuresis with Lasix. Lasix have been switched to p.o. by cardiology service today. Strict intake of record and daily weight. Continue to monitor renal parameters and electrolytes. Echocardiogram reviewed which showed ejection fraction of 50-55%. Estimated pulmonary artery pressure was 37. He does have diastolic dysfunction on echocardiogram likely secondary to long-standing untreated undiagnosed hypertension. continue Coreg, Amlodipine and lisinopril. blood pressure still not adequately controlled. Continue to titrate antihypertensive medication to achieve reasonable blood pressure. (2) Scrotal edema: Code(s): N50.89 - Other specified disorders of the male genital organs Status: Acute Assessment and Plan: Continue to monitor Likely secondary to congestive heart failure improved with diuresis with decreasing swelling. No signs of infection. Vancomycin has been stopped. (3) Hypertensive urgency: Code(s): I16.0 - Hypertensive urgency Status: Acute Assessment and Plan: He was not on medications at home before presentation here hydralazine p.r.n. continue Coreg, amlodipine and lisinopril. Continue to titrate blood pressure medications to achieve reasonable blood pressure. Continue spironolactone continue diuresis with Lasix. It has been switched to p.o. today by cardiology service. (4) Cellulitis of scrotum: Code(s): N49.2 - Inflammatory disorders of scrotum Status: Acute Assessment and Plan: Vancomycin has been stopped as he does not seem to have cellulitis of the scrotum based on clinical examination. (5) Psoriasis: Code(s): L40.9 - Psoriasis, unspecified Status: Acute Assessment and Plan: well controlled continue his home regimen Subjective Date/time seen: 12/22/20 14:18 He is feeling much better today. He is able to ambulate with no significant shortness of breath. He thinks that his lower extremity edema has improved significantly as well. His blood pressure still elevated and not adequately controlled. Review of Systems Review of Systems: All systems reviewed & are unremarkable except as noted in HPI and below Exam Narrative: Exam Narrative: General awake and alert not in distress CVS S1-S2 no murmur respiratory crackles at the bilateral lung bases extremity edema present abdomen soft nontender [employer]ENT alert oriented x3 grossly nonfocal neurological exam Objective Data Vital Signs Vital Signs: Vital Signs - 24 hr 12/21/20 16:00 12/21/20 16:23 12/21/20 20:00 Temperature 36.7 C Pulse Rate 89 92 88 Respiratory Rate 18 Blood Pressure 150/90 H Pulse Oximetry 99 12/21/20 20:23 12/21/20 22:00 12/22/20 00:00 Temperature 36.5 C Pulse Rate 92 89 80 Respiratory Rate 20 Blood Pressure 126/71 Pulse Oximetry 98 12/22/20 04:00 12/22/20 06:00 12/22/20 08:00 Temperature 36.1 C L Pulse Rate 86 87 99 Respiratory Rate 20 Blood Pressure 152/99 H Pulse Oximetry 99 12/22/20 09:10 12/22/20 12:00 Temperature Pulse Rate 87 87 Respiratory Rate Blood Pressure Pulse Oximetry Intake/Output Intake/Output: Intake & Output 12/19/20 12/20/20 12/21/20 12/22/20 23:59 23:59 23:59 23:59 Intake Total 3820 2380 1370 390 Output Total 52781 5825 4450 1000 [facility] -6230 -3445 -3080 -610 Meds/Results Medications: Active Medications Generic Name Dose Route Start Last Admin Trade Name Stephenie PRN Reason Stop Dose Admin Amlodipine Besylate 10 mg 12/20/20 09:00 12/22/20 09:12 Amlodipine Besylate 5 Mg Tablet PO 10 mg QAM [facility] Administration Carvedilol 12.5 mg 12/21/20 21:00 12/22/20 09:
[2020-12-22] MEDS: EUCERIN CREAM 120 GM JAR 1 APPLIC TOPICAL (17:32)
[2020-12-22] MEDS: FUROSEMIDE 80 MG TABLET PO (17:33)
[2020-12-22] MEDS: MELATONIN 5 MG TABLET PO (20:49)
[2020-12-23] VITALS (11 sets, daily range): BP systolic 105–122; BP diastolic 62–78; PULSE 70–92; RESP 18–22; TEMP 35.9–36.4; O2SAT 98–100
--- NOTE | 2020-12-23 08:54 | PM.PNCARD ---
Progress Note: A&P Assessment and Plan (1) CHF (congestive heart failure): Code(s): I50.9 - Heart failure, unspecified Status: Acute Assessment and Plan: 35-year-old male with history of untreated hypertension, morbid obesity, anxiety /depression, psoriasis and psoriatic arthritis,tobacco and alcohol abuse. Patient presented to hospital with dyspnea on exertion and scrotal swelling. He was found to be severely hypertensive with blood pressure 209/124 at presentation. EKG showed sinus tachycardia, no acute ST segment abnormality. Serial troponins are negative. NT proBNP is elevated. Chest x-ray shows pulmonary vascular congestion. Echo showed EF 50-55%, diastolic dysfunction. Clinical presentation consistent with uncontrolled hypertension with hypertensive heart disease and CHF with preserved ejection fraction. - continue diuresis with oral furosemide. - his blood pressure is now at goal. Continue current antihypertensive regimen. -outpatient sleep study - BMP in 1 week (2) Hypertensive urgency: Code(s): I16.0 - Hypertensive urgency Status: Acute Assessment and Plan: blood pressure is at goal. Continue current antihypertensive regimen (3) Scrotal edema: Code(s): N50.89 - Other specified disorders of the male genital organs Status: Acute Assessment and Plan: this has resolved. (4) Tobacco abuse: Code(s): Z72.0 - Tobacco use Status: Acute Assessment and Plan: Smoking cessation counseling was done (5) Morbid obesity: Code(s): E66.01 - Morbid (severe) obesity due to excess calories Status: Acute Assessment and Plan: weight reduction. Outpatient sleep study (6) Cirrhosis: Code(s): K74.60 - Unspecified cirrhosis of liver Status: Acute Assessment and Plan: Subjective Date/time seen: 12/23/20 08:54 Date of service 12/23/2020: Patient continues to feel well today. He again notes that he notices a significant decrease in his abdominal girth and improvement in his breathing. He commented that he dropped his phone on the floor last night and when he bent down to pick it up it did cause him shortness of breath which he says is a noticeable improvement from when he was admitted. He has diuresed almost 19 L since his admission. From my standpoint he is appropriate for discharge home today with short interval follow-up in our office. I counseled him extensively on self-monitoring for heart failure symptoms including rapid waking, dyspnea, orthopnea, lower extremity edema, increase in abdominal girth. He verbalizes understanding and is aware that he is to call our office with any of these signs or symptoms. Hi discussed with him heart healthy diet, low sodium diet, fluid intake goal (see 2.0-2.5 L per day ). I emphasized importance of adherence to his medical regimen. I instructed him on locking daily weights, blood pressure, any heart failure signs and symptoms as detailed above. Review of Systems Review of Systems: All systems reviewed & are unremarkable except as noted in HPI and below Constitutional: Constitutional: Denies difficulty sleeping, Denies excessive sweating, Reports fatigue, Denies headache(s) and Reports lethargy Eyes: Eyes: Denies change in vision ENT: Reports Normal hearing present, Denies headache(s) and Reports neck pain Cardiovascular: Cardiovascular: Denies chest pain, Denies pedal edema, Denies leg edema, Denies palpitations, Denies dyspnea and Reports dyspnea on exertion Respiratory: Respiratory: Denies cough, Denies dyspnea and Denies dyspnea on exertion Gastrointestinal: Gastrointestinal: Reports bloating, Denies constipation and Denies diarrhea Genitourinary: Genitourinary: Denies dysuria Musculoskeletal: Musculoskeletal: Denies back pain, Denies arthralgias and Reports neck pain Integumentary/Breasts: Skin/Breast: Reports erythema Neurologic: Reports Normal heari
[2020-12-23] MEDS: FUROSEMIDE 80 MG TABLET PO ×2 (09:02→16:42)
[2020-12-23] MEDS: LORATADINE 10 MG TABLET PO (09:02)
[2020-12-23] MEDS: carvediloL 12.5 MG TABLET PO ×2 (09:02→21:25)
[2020-12-23] MEDS: SPIRONOLACTONE 25 MG TABLET PO ×2 (09:02→16:42)
[2020-12-23] MEDS: lisinopriL 20 MG TABLET 40 MG PO (09:02)
[2020-12-23] MEDS: SERTRALINE HCL 50 MG TABLET 200 MG PO (09:02)
[2020-12-23] MEDS: amLODIPine BESYLATE 5 MG TABLET 10 MG PO (09:02)
[2020-12-23] MEDS: HEPARIN SODIUM 5,000 UNITS/ML VIAL 5000 UNITS SUB-Q ×2 (09:03→21:25)
[2020-12-23] MEDS: TOLNAFTATE 1% POWDER 45 GM BTL 1 APPLIC TOPICAL ×2 (09:03→21:28)
[2020-12-23] MEDS: EUCERIN CREAM 120 GM JAR 1 APPLIC TOPICAL (09:03)
[2020-12-23] MEDS: clonazePAM (*CRX) 0.5 MG TABLET PO (09:05)
[2020-12-23 13:52] LABS: Vancomycin Trough < 5.0 ug/mL (10.0-20.0)
--- NOTE | 2020-12-23 18:01 | PM.IMPN ---
Progress Note: A&P Assessment and Plan (1) CHF (congestive heart failure): Code(s): I50.9 - Heart failure, unspecified Status: Acute Assessment and Plan: Cardiology recommendations appreciated. Continue diuresis with PO Lasix. Strict intake of record and daily weight. Continue to monitor renal parameters and electrolytes. continue Coreg, Amlodipine and lisinopril Echocardiogram reviewed which showed ejection fraction of 50-55%. Estimated pulmonary artery pressure was 37. He does have diastolic dysfunction on echocardiogram likely secondary to long-standing untreated undiagnosed hypertension. . anticipate discharge tomorrow (2) Scrotal edema: Code(s): N50.89 - Other specified disorders of the male genital organs Status: Acute Assessment and Plan: resolved Likely secondary to congestive heart failure improved with diuresis with decreasing swelling. No signs of infection. Vancomycin has been stopped. (3) Hypertensive urgency: Code(s): I16.0 - Hypertensive urgency Status: Acute Assessment and Plan: He was not on medications at home before presentation here hydralazine p.r.n. continue Coreg, amlodipine and lisinopril. Continue to titrate blood pressure medications to achieve reasonable blood pressure. Continue spironolactone (4) Cellulitis of scrotum: Code(s): N49.2 - Inflammatory disorders of scrotum Status: Acute Assessment and Plan: Vancomycin has been stopped as he does not seem to have cellulitis of the scrotum based on clinical examination. (5) Psoriasis: Code(s): L40.9 - Psoriasis, unspecified Status: Acute Assessment and Plan: well controlled continue his home regimen (6) Morbid obesity: Code(s): E66.01 - Morbid (severe) obesity due to excess calories Status: Acute Assessment and Plan: lifestyle modifications recommended to patients (7) Cirrhosis: Code(s): K74.60 - Unspecified cirrhosis of liver Status: Acute Assessment and Plan: findings compatible with cirrhosis on imaging, lifestyle modifications recommended to patient (8) Tobacco abuse: Code(s): Z72.0 - Tobacco use Status: Acute Assessment and Plan: encouraged to quit Subjective Date/time seen: 12/23/20 12:01 patient doing okay long discussion with him regarding lifestyle modifications. Patient disease highly motivated to lose weight. He does not want to have the same health problems that his father has. At the time of my interview he is reports that he is feeling better is abdomen is less distended his scrotum is less swollen as well as his legs. Exam Narrative: GEN: NAD, AAOx3, cooperative , morbidly obese HEENT: NCAT, MMM, EOMI Neck: no JVD Heart: S1S2 RRR Lungs: CTA B/l Abd: soft, NT, ND, bowel sounds normoactive, Excoriations and erythema Ext: moves all, no cyanosis, no clubbing, 1+ edema Neuro: cranial nerves intact, no focal motor deficits, gait not assessed Psych: mood and affect congruent Objective Data Vital Signs Vital Signs: Vital Signs - 24 hr 12/22/20 20:00 12/22/20 20:49 12/22/20 22:00 Temperature 96.0 F L Pulse Rate 89 87 87 Respiratory Rate 20 Blood Pressure 132/80 Pulse Oximetry 100 12/23/20 00:00 12/23/20 04:00 12/23/20 06:00 Temperature 96.9 F L Pulse Rate 76 87 92 Respiratory Rate 20 Blood Pressure 122/78 Pulse Oximetry 100 12/23/20 08:00 12/23/20 09:02 12/23/20 12:00 Temperature Pulse Rate 84 70 87 Respiratory Rate Blood Pressure Pulse Oximetry 12/23/20 14:00 12/23/20 16:00 Temperature 97.6 F Pulse Rate 82 89 Respiratory Rate 22 H Blood Pressure 105/62 Pulse Oximetry 98 Intake/Output Intake/Output: Intake & Output 12/20/20 12/21/20 12/22/20 12/23/20 23:59 23:59 23:59 23:59 Intake Total 2380 1370 870 870 Output Total 1999 4450 41
[2020-12-23] MEDS: MELATONIN 5 MG TABLET PO (21:26)
[2020-12-24] VITALS: PULSE 80
[2020-12-24 04:00] VITALS: PULSE 85
[2020-12-24 06:00] VITALS: BP 140/86; PULSE 82; RESP 20; TEMP 36.1; O2SAT 98
[2020-12-24 06:34] LABS: Basophils Absolute Auto 0.1 K/mm3 (0.0-0.1); Basophils Percent Auto 0.7 % (0.2-1.2); Eosinophils Absolute Auto 0.5 K/mm3 (0-0.3); Eosinophils Percent Auto 6.2 % (0-4.4); Hematocrit 45.5 % (42.0-52.0); Immature Granulocyte Absolute 0.05 K/mm3 (0.00-0.031); Immature Granulocyte Percent A 0.6 % (0-0.5); Lymphocytes Absolute Auto 1.74 K/mm3 (0.9-3.2); Lymphocytes Percent Auto 20.7 % (18.3-44.2); Mean Corpuscular HGB Conc 30.8 g/dl (32-36); Mean Corpuscular Hemoglobin 28.6 pg (26-34); Mean Corpuscular Volume 92.9 fl (80-100); Monocytes Absolute Auto 0.8 K/mm3 (0.1-0.6); Monocytes Percent Auto 9.8 % (2.6-8.5); Neutrophils Absolute Auto 5.2 K/mm3 (1.3-6.7); Platelet Count Result 319 k/mm3 (150-375); Red Cell Distribution Width 14.3 % (11.5-14.5); White Blood Count 8.4 K/mm3 (4.5-10.0)
[2020-12-24 06:51] LABS: Anion Gap 11 mmol/L (8-16); Blood Urea Nitrogen 17 mg/dL (9-20); Calcium 8.9 mg/dL (8.4-10.2); Carbon Dioxide 24 mmol/L (22-30); Chloride 98 mmol/L (98-107); Estimated CRCL calculation 153 ml/min; Estimated Glomerular Filt Rate > 60; Glucose 103 mg/dL (65-110); Magnesium 1.9 mg/dL (1.6-2.3); Potassium 4.8 mmol/L (3.4-5.0); Sodium 133 mmol/L (137-145)
[2020-12-24 08:00] VITALS: PULSE 80
[2020-12-24] MEDS: lisinopriL 20 MG TABLET 40 MG PO (09:48)
[2020-12-24] MEDS: LORATADINE 10 MG TABLET PO (09:48)
[2020-12-24] MEDS: clonazePAM (*CRX) 0.5 MG TABLET PO (09:48)
[2020-12-24] MEDS: amLODIPine BESYLATE 5 MG TABLET 10 MG PO (09:48)
[2020-12-24] MEDS: SERTRALINE HCL 50 MG TABLET 200 MG PO (09:48)
[2020-12-24] MEDS: carvediloL 12.5 MG TABLET PO (09:49)
[2020-12-24] MEDS: SPIRONOLACTONE 25 MG TABLET PO (09:49)
[2020-12-24] MEDS: TOLNAFTATE 1% POWDER 45 GM BTL 1 APPLIC TOPICAL (09:49)
[2020-12-24] MEDS: HEPARIN SODIUM 5,000 UNITS/ML VIAL 5000 UNITS SUB-Q (09:49)
[2020-12-24] MEDS: FUROSEMIDE 80 MG TABLET PO (09:49)
[2020-12-24] MEDS: EUCERIN CREAM 120 GM JAR 1 APPLIC TOPICAL (09:50)
--- NOTE | 2020-12-24 11:50 | PM.DS ---
DS: Admitting Diagnosis Admitting Diagnosis (1) CHF (congestive heart failure): Code(s): I50.9 - Heart failure, unspecified Status: Acute Assessment and Plan: admitted to telemetry unit currently diuresing awaiting echocardiogram [place] in for accurate intake and output likely secondary to long-standing untreated undiagnosed hypertension (2) Scrotal edema: Code(s): N50.89 - Other specified disorders of the male genital organs Status: Acute Assessment and Plan: likely secondary to congestive heart failure improved with diuresis (3) Hypertensive urgency: Code(s): I16.0 - Hypertensive urgency Status: Acute Assessment and Plan: on no medications at home hydralazine p.r.n. will start lisinopril (4) Cellulitis of scrotum: Code(s): N49.2 - Inflammatory disorders of scrotum Status: Acute Assessment and Plan: ruled out (5) Psoriasis: Code(s): L40.9 - Psoriasis, unspecified Status: Acute Assessment and Plan: DS: Discharge Diagnosis Discharge Diagnosis (1) Cirrhosis: Code(s): K74.60 - Unspecified cirrhosis of liver Status: Acute (2) Morbid obesity: Code(s): E66.01 - Morbid (severe) obesity due to excess calories Status: Acute (3) Tobacco abuse: Code(s): Z72.0 - Tobacco use Status: Acute (4) CHF (congestive heart failure): Code(s): I50.9 - Heart failure, unspecified Status: Acute (5) Hypertensive urgency: Code(s): I16.0 - Hypertensive urgency Status: Acute (6) Psoriasis: Code(s): L40.9 - Psoriasis, unspecified Status: Acute DS: Summary Hospital Course Reason for hospitalization: scrotal swelling Hospital Course: 35-year-old gentleman presented to the emergency room with chief complaint of scrotal edema. He was noted to be in congestive heart failure with elevated blood pressure and volume overload. He was admitted and started on diuretics and antihypertensives. Cardiology was consulted and helped guide is management. ECHO reported EF>55% Scrotal edema resolved and cellulitis was ruled out. He was counseled extensively on lifestyle modifications and weight loss. Patient is discharged home in stable condition on new antihypertensive regimen with Lasix 80 mg p.o. b.i.d. indications given to follow-up with cardiology within 2 weeks for ongoing titration in the outpatient setting and to establish w Dr Orta for Primary Care . Status at Discharge Functional status at discharge: independent ambulation Time Spent with Patient Time attestation: Total time spent providing and/or coordinating discharge services: Time spent: Greater than 30 minutes Exam Narrative: GEN: NAD, AAOx3, cooperative , morbidly obese HEENT: NCAT, MMM, EOMI Neck: no JVD Heart: S1S2 RRR Lungs: CTA B/l Abd: soft, NT, ND, bowel sounds normoactive Ext: moves all, no cyanosis, no clubbing, trace edema Neuro: cranial nerves intact, no focal motor deficits, gait not assessed Psych: mood and affect congruent DS: Data Data Completed and Pending Labs on day of discharge: Labs from last 24 hours 12/24/20 12/24/20 12/23/20 06:08 06:08 13:00 WBC 8.4 RBC 4.90 Hgb 14.0 Hct 45.5 MCV 92.9 MCH 28.6 MCHC 30.8 L RDW 14.3 Plt Count 319 MPV 10.0 Immature Gran % (Auto) 0.6 H Neut % (Auto) 62.0 Lymph % (Auto) 20.7 [place] % (Auto) 9.8 H Eos % (Auto) 6.2 H Baso % (Auto) 0.7 Lymph # (Auto) 1.74 [place] # (Auto) 0.8 H Eos # (Auto) 0.5 H Baso # (Auto) 0.1 Abs Immat Gran (auto) 0.05 H Absolute Neuts (auto) 5.2 Absolute Nucleated RBC 0.0 Nucleated RBC % 0.0 Sodium 133 L Potassium 4.8 Chloride 98 Carbon Dioxide 24 Anion Gap 11 BUN 17 Creatinine 1.00 Estim Creat Clear Calc 153 Estimated GFR > 60 Glucose 103 Calcium 8.9 Magnesium 1.9 Vancomycin Trough < 5.0 L
[2020-12-24 12:00] VITALS: PULSE 80
== END 2020-12-24 14:12 | disposition home or self-care (01) | DRG 291 ==
LOC: ANHED 12-18 06:44 → ANHIMU 12-18 07:50 → ANH3MEDSUR 12-21 18:44 → ANHIMU 12-28 15:43
PROVIDERS: Internal Medicine Critical Care Medicine; Nurse Practitioner; Admitting Provider Internal Medicine; Emergency Provider Emergency Medicine; Visit Provider Hospitalist
DX: I11.0 Hypertensive heart disease with heart failure (principal); I50.31 Acute diastolic (congestive) heart failure; Z68.43 Body mass index [BMI] 50.0-59.9, adult; I16.0 Hypertensive urgency; N50.89 Other specified disorders of the male genital organs; K74.60 Unspecified cirrhosis of liver; L40.9 Psoriasis, unspecified; E66.01 Morbid (severe) obesity due to excess calories; F17.210 Nicotine dependence, cigarettes, uncomplicated; F41.8 Other specified anxiety disorders; L40.50 Arthropathic psoriasis, unspecified
CPT/HCPCS: 36415; 71045; 74177; 76705; 76870; 80048; 80202; 81001; 82565; 83605; 83735; 83880; 84484; 85025; 86706; 86803; 87040; 87340; 93005; 93976; 96361; 96365; 96366; 96367; 96375; 96376; 99285; A9270; C8929; G0378; J0360; J1644; J1940; J2060; J2543; J3370; J7030; Q9957; Q9967

== ENCOUNTER 2021-02-03 14:18 | Outpatient (CLI) | payer BC, SELFPAY ==
[2021-02-03 15:59] LABS: Alanine Aminotransferase 38 U/L (4-50); Albumin Level 4.1 g/dL (3.5-5.1); Alkaline Phosphatase 113 U/L (38-126); Anion Gap 7 mmol/L (8-16); Aspartate Amino Transferase 40 U/L (17-59); Bilirubin,Total 0.4 mg/dL (0.2-1.3); Blood Urea Nitrogen 22 mg/dL (9-20); Carbon Dioxide 26 mmol/L (22-30); Chloride 101 mmol/L (98-107); Estimated Glomerular Filt Rate > 60; Glucose 102 mg/dL (65-110); Sodium 134 mmol/L (137-145)
== END 2021-02-03 14:19 | disposition home or self-care (01) ==
PROVIDERS: Visit Provider Nurse Practitioner
DX: I42.0 Dilated cardiomyopathy (principal)
CPT/HCPCS: 36415; 80048; 80076

== ENCOUNTER 2021-03-24 09:48 | Outpatient (CLI) | payer BC, SELFPAY ==
[2021-03-24 10:35] LABS: Anion Gap 10 mmol/L (8-16); Blood Urea Nitrogen 21 mg/dL (9-20); Calcium 9.2 mg/dL (8.4-10.2); Carbon Dioxide 27 mmol/L (22-30); Chloride 97 mmol/L (98-107); Estimated Glomerular Filt Rate > 60; Glucose 107 mg/dL (65-110); Potassium 4.3 mmol/L (3.4-5.0); Sodium 134 mmol/L (137-145)
== END 2021-03-24 09:49 | disposition home or self-care (01) ==
PROVIDERS: PCP Family Medicine; Visit Provider Nurse Practitioner
DX: I50.30 Unspecified diastolic (congestive) heart failure (principal)
CPT/HCPCS: 36415; 80048